=== PATIENT | male | born 1990 | race American Indian/Alaskan Native ===

== ENCOUNTER 2016-09-16 19:18 | Emergency (ER) | payer OTHER ==
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
[2016-09-16] MEDS ORDERED: Acetaminophen/HYDROcodone 325-10 MG Tab PO ONE (20:45)
[2016-09-16 21:27] VITALS: BP 113/78
== END 2016-09-16 21:28 | disposition home or self-care (01) ==
LOC: DL.ED 19:18
DX: S62.141A Displaced fracture of body of hamate [unciform] bone, right wrist, initial encounter for closed fracture (principal); W22.8XXA Striking against or struck by other objects, initial encounter; Y92.009 Unspecified place in unspecified non-institutional (private) residence as the place of occurrence of the external cause
CPT/HCPCS: 26605; 36415; 73120; 73130; 80305; 99284; A9270; G0480; 99283

== ENCOUNTER 2019-03-30 16:44 | Emergency (ER) | payer OTHER ==
[2019-03-30 16:51] VITALS: PULSE 126
[2019-03-30] MEDS ORDERED: Sodium Chloride 0.9% 10 ML Syringe FLUSH PRN (17:01)
[2019-03-30] MEDS ORDERED: Sodium Chloride 0.9% 1,000 ML IV ONE (17:06)
[2019-03-30] MEDS ORDERED: diphenhydrAMINE 50 MG/ML SDV IVPUSH ONE ×2 (17:11→18:21)
[2019-03-30] MEDS ORDERED: Meropenem Premix 1 GM in Premix Bag 1 BAG IV ONE (17:14)
[2019-03-30 17:34] LABS: ANION GAP 12.5; CHLORIDE,CL 99 mmol/L (101-111); SODIUM,NA 133 mmol/L (135-145)
[2019-03-30 18:16] VITALS: BP 123/71
[2019-03-30] MEDS ORDERED: methylPREDNISolone Sodium Succinate 125 MG/2 ML SDV IVPUSH ONE (18:21)
--- NOTE | 2019-03-30 18:40 | EDM.PDOC ---
Scribed by Gaviota Astudillo 03/30/19 1727 for Brissa Osorio MD ED HPI GENERAL MEDICAL PROBLEM - General Chief Complaint: Upper Extremity Injury/Pain Stated Complaint: SPLINTERED BY METAL BROOM Time Seen by Provider: 03/30/19 16:51 Source of Information: Reports: Patient, RN, RN Notes Reviewed History Limitations: Reports: No Limitations - History of Present Illness INITIAL COMMENTS - FREE TEXT/NARRATIVE: Patient presents to ER via POV with complaint that he was trying to fix a broom last night and it had rust on it. He states that it poked into his 3rd finger on the left hand in 2 places. Patient states that last night he noticed his left hand started to swell. Today the patient noticed redness and swelling to the left hand with 2 red lines going up his lower arm and now to his armpit. Pt admits to fevers, chills, and diaphoresis. Pt states he also has a tender, hot, swollen lump at the left elbow. He denies ever using drugs. He does not know if he has ever had MRSA. Pt states his last Tetanus vaccine was 1 year ago. Onset: Gradual Onset Date: 03/29/19 Duration: Constant, Getting Worse Location: Reports: Upper Extremity, Left Quality: Reports: Ache, Pressure, Throbbing Severity: Severe Improves with: Reports: None Worsens with: Reports: Movement Associated Symptoms: Reports: No Other Symptoms Left Hand Pain Score (Numeric/FACES): 7 - Related Data Allergies Allergy/AdvReac Type Severity Reaction Status Date / Time No Known Allergies Allergy Verified 03/30/19 16:51 Home Meds: Home Meds . [No Known Home Meds] 09/16/16 [History] Past Medical History - Past Health History Medical/Surgical History: Denies Medical/Surgical History Social & Family History - Family History Family Medical History: Noncontributory - Caffeine Use Caffeine Use: Reports: Coffee - Alcohol Use Alcohol Use History: Yes Alcohol Use Frequency: Socially - Recreational Drug Use Recreational Drug Use: No Drug Use in Last 12 Months: No - Living Situation & Occupation Living situation: Reports: with Family Review of Systems - Review of Systems Review Of Systems: ROS reveals no pertinent complaints other than HPI. ED EXAM, GENERAL - Physical Exam Exam: See Below Exam Limited By: No Limitations General Appearance: Alert, WD/WN, No Apparent Distress, Other (Acutely ill appearing.) Eye Exam: Bilateral Eye: EOMI, Normal Inspection, PERRL Ears: Normal External Exam, Normal Canal, Hearing Grossly Normal, Normal TMs Nose: Normal Inspection, Normal Mucosa, No Blood Throat/Mouth: Normal Inspection, Normal Lips, Normal Voice, No Airway Compromise Head: Atraumatic, Normocephalic Neck: Normal Inspection, Supple, Non-Tender, Full Range of Motion Respiratory/Chest: No Respiratory Distress, Lungs Clear, Normal Breath Sounds, No Accessory Muscle Use, Chest Non-Tender Cardiovascular: Normal Peripheral Pulses, Regular Rate, Rhythm, No Edema, No Gallop, No JVD, No Murmur, No Rub, Tachycardia Peripheral Pulses: 3+: Radial (L), Radial (R) GI/Abdominal: Normal Bowel Sounds, Soft, Non-Tender, No Organomegaly, No Distention, No Abnormal Bruit, No Mass Back Exam: Normal Inspection Extremities: No Pedal Edema, Redness (Left hand and 3rd finger with erythema to axilla.), Other (Small fluctuant abscee to left antecubital elbow.). No: Joint Swelling Neurological: Alert, Oriented, CN II-XII Intact, Normal Cognition, Normal Gait, No Motor/Sensory Deficits Psychiatric: Normal Mood Skin Exam: Dry, Diaphoretic, Erythema (Left hand/arm), Increased Warmth (Left hand/arm), Wound/Incision (Tiny puncture wound x2 to left hand at the base of the 3rd digit, one on the dorsum and one on the ventral side. Needle track escudero on B/L antecubital fossa.) Lymphatic: No Adenopathy Course - Vital Signs Last Recorded V/S: Last Vital Signs Temp 100.2 F 03/30/19 18:14 Pulse 126 H 03/30/19 16:47 Resp 40 H 03/30/19 18:14 BP 123/71 03/30/19 18:14 Pulse Ox 97 03/30/19 18:14 - Orders/Labs/Meds Orders: Active Orders 24 hr Category Date Time Status Peripheral IV Care [RC] . DIRECTED Care 03/30/19 17:01 Active Hand 2V Lt [CR] Urgent Exams 03/30/19 17:05 Taken CULTURE BLOOD [BC] Stat Lab 03/30/19 17:09 Received CULTURE BLOOD [BC] Stat Lab 03/30/19 17:31 Received DRUG SCREEN URINE BIORAD [URCHEM] Stat Lab 03/30/19 17:04 Ordered UA RFX ALIE AND CULT IF INDIC [URIN] Stat Lab 03/30/19 17:04 Ordered Sodium Chloride 0.9% [Saline Flush] Med 03/30/19 17:01 Active 10 ml FLUSH ASDIRECTED PRN Vancomycin 1.25 gm Med 03/30/19 17:09 Active Sodium Chloride 0.9% [Normal Saline] 250 ml IV ONETIME Blood Culture x2 Reflex Set [OM.PC] Stat Oth 03/30/19 17:01 Ordered Peripheral IV Insertion Adult [OM.PC] Stat Oth 03/30/19 17:01 Ordered Medication Orders Vancomycin HCl 1.25 gm/ Sodium (Chloride) 250 mls @ 167 mls/hr IV ONETIME ONE Stop: 03/30/19 18:38 Last Admin: 03/30/19 17:38 Dose: 167 mls/hr Sodium Chloride (Saline Flush) 10 ml FLUSH ASDIRECTED PRN PRN Reason: Keep Vein Open Labs: Laboratory Tests 03/30/19 03/30/19 03/30/19 Range/Units 17:09 17:09 17:09 WBC 22.1 H (5.0-10.0) 10^3/uL RBC 5.33 (4.6-6.2) 10^6/uL Hgb 15.8 (14.0-18.0) g/dL Hct 43.9 (40.0-54.0) % MCV 82.4 (80-100) fL MCH 29.6 (27.0-34.0) pg MCHC 36.0 H (33.0-35.0) g/dL Plt Count 239 (150-450) 10^3/uL Neut % (Auto) 90.6 H (42.2-75.2) % Lymph % (Auto) 5.0 L (20.5-50.1) % Young % (Auto) 4.3 (2-8) % Eos % (Auto) 0.0 L (1.0-3.0) % Baso % (Auto) 0.1 (0.0-1.0) % Sodium 133 L (135-145) mmol/L Potassium 3.5 L (3.6-5.0) mmol/L Chloride 99 L (101-111) mmol/L Carbon Dioxide 25.0 (21.0-31.0) mmol/L Anion Gap 12.5 BUN 15 (7-18) mg/dL Creatinine 0.9 (0.6-1.3) mg/dL Est Cr Clr Drug Dosing 123.92 mL/min Estimated GFR (MDRD) > 60 BUN/Creatinine Ratio 16.66 Glucose 164 H (74-105) mg/dL Lactic Acid 1.2 (0.5-2.2) mmol/L Calcium 9.2 (8.4-10.2) mg/dl Total Bilirubin 1.9 H (0.2-1.0) mg/dL AST 30 (10-42) IU/L ALT 53 (10-60) IU/L Alkaline Phosphatase 75 (42-121) IU/L C-Reactive Protein (0.0-1.3) mg/dL Total Protein 8.5 H (6.7-8.2) g/dl Albumin 4.1 (3.2-5.5) g/dl Globulin 4.4 Albumin/Globulin Ratio 0.93 03/30/19 Range/Units 17:09 WBC (5.0-10.0) 10^3/uL RBC (4.6-6.2) 10^6/uL Hgb (14.0-18.0) g/dL Hct (40.0-54.0) % MCV (80-100) fL MCH (27.0-34.0) pg MCHC (33.0-35.0) g/dL Plt Count (150-450) 10^3/uL Neut % (Auto) (42.2-75.2) % Lymph % (Auto) (20.5-50.1) % Young % (Auto) (2-8) % Eos % (Auto) (1.0-3.0) % Baso % (Auto) (0.0-1.0) % Sodium (135-145) mmol/L Potassium (3.6-5.0) mmol/L Chloride (101-111) mmol/L Carbon Dioxide (21.0-31.0) mmol/L Anion Gap BUN (7-18) mg/dL Creatinine (0.6-1.3) mg/dL Est Cr Clr Drug Dosing mL/min Estimated GFR (MDRD) BUN/Creatinine Ratio Glucose (74-105) mg/dL Lactic Acid (0.5-2.2) mmol/L Calcium (8.4-10.2) mg/dl Total Bilirubin (0.2-1.0) mg/dL AST (10-42) IU/L ALT (10-60) IU/L Alkaline Phosphatase (42-121) IU/L C-Reactive Protein 16.7 H (0.0-1.3) mg/dL Total Protein (6.7-8.2) g/dl Albumin (3.2-5.5) g/dl Globulin Albumin/Globulin Ratio Meds: Medications Generic Name Dose Route Start Last Admin Trade Name Freq PRN Reason Stop Dose Admin Vancomycin HCl 1.25 gm/ Sodium 250 mls @ 167 mls/hr 03/30/19 17:09 03/30/19 17:38 Chloride IV 03/30/19 18:38 167 mls/hr ONETIME ONE Administration Sodium Chloride 10 ml 03/30/19 17:01 Saline Flush FLUSH ASDIRECTED PRN Keep Vein Open Discontinued Medications Generic Name Dose Route Start Last Admin Trade Name Freq PRN Reason Stop Dose Admin Diphenhydramine HCl 25 mg 03/30/19 17:11 03/30/19 17:35 Benadryl IVPUSH 03/30/19 17:12 25 mg ONETIME ONE Administration Diphenhydramine HCl 25 mg 03/30/19 18:21 Benadryl IVPUSH 03/30/19 18:22 ONETIME ONE Sodium Chloride 1,000 mls @ 999 mls/hr 03/30/19 17:06 03/30/19 17:35 Normal Saline IV 03/30/19 18:06 999 mls/hr .BOLUS ONE Administration Meropenem/Sodium Chloride 1 gm 50 mls @ 100 mls/hr 03/30/19 17:14 03/30/19 18 :13 / Premix IV 03/30/19 17:43 100 mls/hr ONETIME ONE Administration Methylprednisolone Sodium Succinate 125 mg 03/30/19 18:21 Solu-Medrol IVPUSH 03/30/19 18:22 ONETIME ONE - Radiology Interpretation Free Text/Narrative:: [facility] Final Radiology Report Call: [phone] assistance Online chat: [email or web address] Name: [email or web address] CID Age: 29Years M Date: 03/30/2019 SSN: -- : 1990 Study: XR HAND 1 OR 2 VIEWS LEFT Requesting Physician: BRISSA OSORIO Images: 2 Addl Studies: Provided Clinical History: Contrast: Contrast Medium: Contrast Amount: Contrast Method: CONFIDENTIALITY STATEMENT This report is intended only for use by the referring physician, and only in accordance with law. If you received this in error, call [phone]. Page 1 of 1 PROCEDURE INFORMATION: Exam: XR Left Hand Exam date and time: 03/30/2019 5:12 PM Clinical history: 29 years old, male; Other: Possible metallic fb--swelling/ redness TECHNIQUE: Imaging protocol: XR Left hand. Views: 1 or 2 views. COMPARISON: No relevant prior studies available. FINDINGS: Bones/joints: The alignment of the joints is anatomic and the joint spaces are maintained. There is no evidence of acute fracture. Soft tissues: Next soft tissue swelling moderate There is no evidence of a radio -opaque foreign body. IMPRESSION: No foreign bodies identified. Thank you for allowing us to participate in the care of your patient. Dictated and Authenticated by: Demetris Rowell MD 03/30/2019 5:32 PM Central Time ([place] & [place]) - Re-Assessments/Exams Free Text/Narrative Re-Assessment/Exam: 03/30/19 18:20 Pt developed urticaria to the Rt upper extremity with itching after Vancomycin had ran for several minutes. The antibiotic was held, and Benadryl 25mg and Solu -Medrol 125mg IVP were given. Departure - Departure Time of Disposition: 18:29 Disposition: DC/Tfer to Acute Hospital 02 Condition: Serious, Critical Clinical Impression: Cellulitis of left upper extremity Sepsis Qualifiers: Sepsis type: sepsis due to unspecified organism Sepsis acute organ dysfunction status: unspecified Qualified Code(s): A41.9 - Sepsis, unspecified organism - Discharge Information *PRESCRIPTION DRUG MONITORING PROGRAM REVIEWED*: No *COPY OF PRESCRIPTION DRUG MONITORING REPORT IN PATIENT JAIDA: No Forms: ED Department Discharge, Interfacility Transfer EMTALA - My Orders Last 24 Hours: My Active Orders 03/30/19 17:01 Peripheral IV Care [RC] . DIRECTED Sodium Chloride 0.9% [Saline Flush] 10 ml FLUSH ASDIRECTED PRN Blood Culture x2 Reflex Set [OM.PC] Stat Peripheral IV Insertion Adult [OM.PC] Stat 03/30/19 17:04 DRUG SCREEN URINE BIORAD [URCHEM] Stat UA RFX ALIE AND CULT IF INDIC [URIN] Stat 03/30/19 17:05 Hand 2V Lt [CR] Urgent 03/30/19 17:09 CULTURE BLOOD [BC] Stat Vancomycin 1.25 gm Sodium Chloride 0.9% [Normal Saline] 250 ml IV ONETIME 03/30/19 17:31 CULTURE BLOOD [BC] Stat - Assessment/Plan Last 24 Hours: My Active Orders 03/30/19 17:01 Peripheral IV Care [RC] . DIRECTED Sodium Chloride 0.9% [Saline Flush] 10 ml FLUSH ASDIRECTED PRN Blood Culture x2 Reflex Set [OM.PC] Stat Peripheral IV Insertion Adult [OM.PC] Stat 03/30/19 17:04 DRUG SCREEN URINE BIORAD [URCHEM] Stat UA RFX ALIE AND CULT IF INDIC [URIN] Stat 03/30/19 17:05 Hand 2V Lt [CR] Urgent 03/30/19 17:09 CULTURE BLOOD [BC] Stat Vancomycin 1.25 gm Sodium Chloride 0.9% [Normal Saline] 250 ml IV ONETIME 03/30/19 17:31 CULTURE BLOOD [BC] Stat I have read and agree with the documentation that has been completed regarding this visit. By signing this record, I attest that the documentation was completed in my physical presence and is an accurate record of the encounter.
[2019-03-30] MEDS ORDERED: Sodium Chloride 0.9% 1,000 ML IV SCH (18:45)
== END 2019-03-30 19:15 ==
LOC: DL.ED 16:44
DX: A41.9 Sepsis, unspecified organism (principal); L03.114 Cellulitis of left upper limb
CPT/HCPCS: 36415; 73120; 80053; 80305; 81001; 83605; 85025; 86140; 87040; 87086; 96365; 96375; 96376; 99284; J1200; J2185; J2930; J3370; J7030; J7050; 87077

== ENCOUNTER 2021-08-14 00:24 | Emergency (ER) | payer OTHER ==
[2021-08-14 00:16] VITALS: BP 140/99; PULSE 120
[~2021-08-14 00:24] MED LIST: Bacitracin Oint 1 GM U/D Packet TOP ONE; Lidocaine 1% with EPINEPHrine 1:100,000 20 ML MDV INJECT ONE
== END 2021-08-14 00:30 | disposition home or self-care (01) ==
LOC: DL.ED 00:24
DX: S01.111A Laceration without foreign body of right eyelid and periocular area, initial encounter (principal); Y04.2XXA Assault by strike against or bumped into by another person, initial encounter
CPT/HCPCS: 12011; 99283-25